=== PATIENT | male | born 1945 | race Caucasian/White ===

== ENCOUNTER 2021-05-21 22:48 | Emergency (ER) | payer MEDICARE, OTHER ==
[2021-05-22 00:21] LABS: HEMOGLOBIN 14.6 gm/dl (14.0-17.5); RED BLOOD COUNT 4.89 M/UL (4.20-5.50)
[2021-05-22 00:44] LABS: BUN/CREATININE RATIO 22 (0-10)
[2021-05-22] MEDS ORDERED: ASPIRIN CHEWABL81 MG PO (03:38)
[2021-05-22] MEDS ORDERED: OMNICEF 300 MG300 MG PO (03:40)
== END 2021-05-22 03:50 | disposition home or self-care (01) ==
LOC: ER1 22:48
PROVIDERS: Physician Assistant
DX: J18.9 Pneumonia, unspecified organism (principal); E11.9 Type 2 diabetes mellitus without complications; I10 Essential (primary) hypertension; Z79.84 Long term (current) use of oral hypoglycemic drugs
CPT/HCPCS: 71045; 80053; 82550; 82553; 83690; 83735; 83874; 83880; 84484; 85025; 85610; 85730; 93005; 99285; J2405

== ENCOUNTER → 2021-05-30 | Outpatient (CLI) | payer MEDICARE, OTHER ==
[~2021-05-30] MED LIST: ASPIRIN CHEWABL81 MG PO; OMNICEF 300 MG300 MG PO
[2021-05-30 10:04] LABS: HEMOGLOBIN 14.7 gm/dl (14.0-17.5); RED BLOOD COUNT 5.14 M/UL (4.20-5.50); WHITE BLOOD COUNT 6.7 K/UL (4.5-11.0)
[2021-05-30 10:36] LABS: BUN/CREATININE RATIO 24 (0-10)
== END ==
LOC: LAB 08:57
PROVIDERS: Family Medicine
DX: Z12.5 Encounter for screening for malignant neoplasm of prostate (principal); E55.9 Vitamin D deficiency, unspecified; I10 Essential (primary) hypertension; E78.5 Hyperlipidemia, unspecified; E11.9 Type 2 diabetes mellitus without complications
CPT/HCPCS: 80053; 80061; 83036; 84439; 84443; 85027; G0103